=== PATIENT | male | born 1980 | race African-American/Black ===

== ENCOUNTER 2017-07-22 09:31 | Day surgery (SDC) | payer OTHER ==
[~2017-07-22 09:31] MED LIST: Buffered Lidocaine 0.9% SYRIN* 5 ML/SYR SYRINGE INTRADERM ONE; Dexamethasone IV* 4 MG/ML 1 ML (4 MG) IV SLOW PU ONE; Dexamethasone IV* 4 MG/ML 1 ML (4 MG) ONE; Famotidine IV* 10 MG/ML 2 ML (20 mg) IV ONE; Famotidine IV* 10 MG/ML 2 ML (20 mg) ONE
[2017-07-22] MEDS ORDERED: ceFAZolin 2 GM PREMIX (*) 50 ML IVPB ONE (09:45)
[2017-07-22] MEDS ORDERED: Ketorolac INJ* 30 MG/ML 1 ML VIAL IV PRN (10:08)
[2017-07-22] MEDS ORDERED: oxyCODONE/Acetamin 5/325 MG* TAB PO PRN (10:08)
[2017-07-22] MEDS ORDERED: fentaNYL* 50 MCG/ML 2 ML VIAL (100 MCG VIAL) IV PRN (10:08)
[2017-07-22] MEDS ORDERED: PROCHLORPERAZINE INJ 5 MG/ML 2 ML VIAL IV PRN (10:08)
[2017-07-22] MEDS ORDERED: HYDROcodone/ACETAMIN 5-325 MG* 1 TAB PO PRN (10:08)
[2017-07-22] MEDS ORDERED: Midazolam* 1 MG/ML 5 ML VIAL (5 MG) ONE (10:14)
[2017-07-22] MEDS ORDERED: Lidocaine 2% PF * 5 ML VIAL ONE (10:14)
[2017-07-22] MEDS ORDERED: Propofol* 10 MG/ML 20 ML BTL IV PUSH ONE (10:14)
[2017-07-22] MEDS ORDERED: fentaNYL* 50 MCG/ML 2 ML VIAL (100 MCG VIAL) ONE ×2 (10:15→10:51)
[2017-07-22] MEDS ORDERED: Bupivacaine 0.25% SDV* 30 ML ONE (10:19)
[2017-07-22] MEDS ORDERED: Ondansetron INJ* 2 MG/ML VIAL ONE (10:55)
[2017-07-22 12:32] VITALS: BP 128/81
--- NOTE | 2017-07-22 22:35 | OP ---
DATE OF OPERATION: 07/22/17 - [facility] DATE OF : 78 SURGEON: Hasmukh Knutson MD POLYMERIZATION OVEN TENDER: AD Doran. An marketing assistant retail division was needed for the entirety of the procedure to aid in positioning of the arm and traction. ANESTHESIOLOGIST: Dr. Salvador Avilez. ANESTHESIA: General. PRE-OP DIAGNOSES: 1. 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 2. Right carpal tunnel syndrome. POST-OP DIAGNOSES: 1. 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 2. Right carpal tunnel syndrome. OPERATIVE PROCEDURE: 1. Right ulnar nerve decompression at the elbow with subcutaneous transposition. 2. Right ulnar nerve decompression at the wrist. 3. Right carpal tunnel release. INDICATIONS: Bassem has severe ulnar nerve disease. I was concerned for double crush syndrome. We talked about risks and benefits, he wanted to proceed. We did have a nice discussion preoperatively. He was telling me that the radial three digits are going numb intermittently. I told him we should do the carpal tunnel release since it is the same incision and we should take care of it at this time. He agreed with that and and wanted to proceed. ESTIMATED BLOOD LOSS: 5 mL. COMPLICATIONS: None. FINDINGS: Severe ulnar nerve compression at the elbow. DESCRIPTION OF PROCEDURE: Bassem was seen in the preoperative holding area. The correct side, site, and procedure were identified. We came back to the operating room and the arm was prepped and draped in the usual fashion. A time- out was performed. I began by exsanguinating the arm with the Esmarch and the tourniquet was inflated to 250 mmHg. I then made a longitudinal incision in the proximal palm which was brought back over the wrist flexion crease in Norma type fashion. Dissection was carried down to the fascia. This was opened up to expose the ulnar artery. The release of the superficial fascia was performed to release Guyon's canal. I then came to the other side of the hook of the hamate and released the transverse carpal ligament. This was completed proximally and distally until there was absolutely no compression on the median nerve. Once the carpal tunnel release was completed, I then went back to the ulnar neurovascular bundle, dissected the ulnar nerve free from the ulnar artery. There was a couple of traversing perforating arteries that had to be cauterized with the bipolar. I then released the deep motor branch of the ulnar nerve by releasing the fascia from just off the hook of the hamate. Once I had completed that release, I went ahead and irrigated out the wound. There was absolutely no compression on either the carpal tunnel or on the ulnar nerve proximally or distally. The motor branch had been very nicely decompressed. I , therefore, closed the skin with 4-0 nylon suture. I then turned my attention to the elbow. The shoulder was abducted and externally rotated. I made a curvilinear incision centered over Reddy's ligament and extending proximally and distally about 4 cm in either direction in line with the ulnar nerve. Dissection was carried down with the Bovie to the fascia proximally and then with the tenotomy scissors distally. The medial antebrachial cutaneous nerve was identified. I went ahead and made the release of the ulnar nerve proximally by releasing the overlying fascia and taking it all the way past the arcade of [place]. Once that was released, I came back and released the Reddy's ligament and it was obvious that the nerve was in fact on top of the medial epicondyle proximally and then diving deep to Reddy' s ligament in the mid aspect of the cubital tunnel and it was severely compressed and bulbous and hypertrophied in this area. I released the remainder of Reddy's ligament. I released the superficial FCU fascia, I did split the two edge of the FCU and released the subfacial layer until the release was completed distally. I then examined the nerve that was sitting perched and subluxated over the medial epicondyle. I decided we better do a transposition. I went ahead and released the medial antebrachial cutaneous nerve in order to perform a transposition. I went ahead and raised anterior subcutaneous flap right off the deep investing fascia. I released the leading edge of the FCU fascia. I excised the medial intermuscular septum over an interval of about 4 cm distally off the supracondylar ridge. I performed a neurolysis and mobilized the nerve until it was sitting nicely in the transpose position. I then made step-cut type fascial flaps and released the deep muscular septi until I had a nice muscular bed for the nerve to lie upon. I then transposed my fascial flaps too and sewed them end-to-end to hold the nerve in the transposed position. I did have to do a little bit internal dissection to gain some length on a couple of the motor branches to the FCU head. Once the nerve was nicely transposed and held in place by the fascial flaps, I flexed and extended the elbow. The nerve had actually no tension on it , any kink, or move in any undesired way. It lied in a very nice relaxed position. I went ahead and obtained hemostasis with Bovie. The wound was copiously irrigated. The subcutaneous tissue was reapproximated with 3-0 Polysorb. Skin was then closed with 4-0 nylon suture. A 0.25% Marcaine was infiltrated into all the operative areas. The wounds were dressed with Xeroform , 4x4's, and ABD at the elbow, sterile Webril and a long-arm splint was applied. Tourniquet was deflated and the hand pinked up immediately. He was taken to the recovery room in stable condition. [id number] #: [id number] ASHLEE
== END 2017-07-22 13:51 | disposition home or self-care (01) ==
LOC: OREAST 09:31
PROVIDERS: ATTEND Orthopaedic Surgery Hand Surgery
DX: G56.21 Lesion of ulnar nerve, right upper limb (principal); G56.01 Carpal tunnel syndrome, right upper limb; J45.909 Unspecified asthma, uncomplicated; F17.210 Nicotine dependence, cigarettes, uncomplicated
CPT/HCPCS: J0690; J1100; J2250; J2405; J2704; J3010